=== PATIENT | female | born 1930 | race Caucasian/White ===

== ENCOUNTER → 2016-11-29 | Outpatient (CLI) | payer MEDICARE ==
[~2016-11-29] MED LIST: /AMIO20TA OR; /WARF2TA OR; ASPI81TA83 OR; CETI10TA OR; COLA100C2 OR; DIGO0.126 OR; KLOR10TA OR; LASI40TA OR; NEUR100C OR; NITR0.4S SL; PERC5TAB8 OR; POTA20TA2 OR; PRIL20CA OR; SENN8.6T14 OR; SENO8.6T5 OR; ZEST2.5T OR; levetiracetam OR; senna OR
--- NOTE | 2016-11-29 16:13 | REP ---
CERVICAL SPINE, SEVEN VIEWS: HISTORY: Spondylosis. COMPARISON: 04/11/2013 The cervical spine is visualized from C1 to C7 in the lateral radiographs. There is no acute fracture or subluxation. The C4-5 through C6-7 intervertebral discs are decreased in height consistent with disc degeneration. Anterior osteophytes are present on C4 through 6. There is narrowing of the C4-6 neural foramina secondary to uncinate process hypertrophy. IMPRESSION: Degenerative change as described above. Signed by Sohail Alejandro MD 11/29/2016 04:15 P
--- NOTE | 2016-11-29 16:15 | REP ---
LUMBAR SPINE, SEVEN VIEWS: HISTORY: Spondylosis. COMPARISON: 03/02/2007. There is no acute fracture. The intervertebral discs are decreased in height. Vacuum phenomenon is present at the L4-5 level. These findings are consistent with disc degeneration. Anterior osteophytes are present throughout the lumbar spine. There is narrowing of the L4-5 and L5-S1 facets with associated sclerosis. There are 2 mm of grade 1 spondylolisthesis of L4-5. This is unchanged with flexion and extension. IMPRESSION: Degenerative change as described above. Signed by Sohail Alejandro MD 11/29/2016 04:40 P
== END ==
LOC: M LAB 14:27
PROVIDERS: ATTEND Neurological Surgery
DX: M47.892 Other spondylosis, cervical region (principal); M47.896 Other spondylosis, lumbar region

== ENCOUNTER → 2016-12-29 | Outpatient (CLI) | payer MEDICARE ==
--- NOTE | 2016-12-29 16:41 | REP ---
MRI CERVICAL SPINE: A disc bulge is present at the C3-4 level. There is minimal effacement of the thecal sac without spinal cord compression. The C3 neural foramina are patent. A disc bulge with associated osteophyte formation is present at the C4-5 level. There is minimal effacement of the thecal sac without spinal cord compression. Bilateral uncinate process hypertrophy is present. This produces minimal and mild narrowing of the right and left C4 neural foramina respectively. A disc bulge with associated osteophyte formation is present at the C5-6 level. There is moderate effacement of the thecal sac without spinal cord compression. Bilateral uncinate process hypertrophy is present. This produces mild and moderate narrowing of the right and left C5 neural foramina respectively. A disc bulge is present at the C6-7 level. There is mild effacement of the thecal sac without spinal cord compression. Bilateral uncinate process hypertrophy is present. This produces mild narrowing of the C6 neural foramina. There is no other disc bulge or herniation. The remaining neural foramina are patent. The spinal cord is normal in signal intensity. There is no intradural extramedullary lesion. The C4-5 through C6-7 intervertebral discs are decreased in height consistent with disc degeneration. Normal signal intensity is present in the cervical vertebral bodies. IMPRESSION: There is cervical spondylosis at the C3-4 through C6-7 levels without spinal cord compression. Signed by Sohail Alejandro MD 12/29/2016 04:45 P
--- NOTE | 2016-12-29 16:45 | REP ---
MRI THORACIC SPINE WITHOUT CONTRAST: HISTORY: Spondylosis. A small central disc protrusion is present at the T3-4 level. There is minimal effacement of the thecal sac without spinal cord compression. The T3 neural foramina are patent. A disc bulge is present at the T12-L1 level. There is minimal effacement of the thecal sac without spinal cord compression. The T12 neural foramina are patent. There is no other disc bulge or herniation. The remaining neural foramina are patent. The spinal cord is normal in signal intensity. There is no intradural extramedullary lesion. Normal signal intensity is present in the thoracic vertebral bodies. Anterior osteophytes are present throughout the thoracic spine. There is aneurysmal dilatation of the thoracic and visualized abdominal aorta. IMPRESSION: 1. Small disc protrusion at the T3-4 level without spinal cord compression. 2. Disc bulge at the T12-L1 level without spinal cord compression. 3. There is aneurysmal dilatation of the thoracic and visualized abdominal aorta. Ultrasound of the abdominal aorta may be helpful for further evaluation. Signed by Sohail Alejandro MD 12/29/2016 04:47 P
== END ==
LOC: M RAD 12:57
PROVIDERS: ATTEND Neurological Surgery
DX: M47.892 Other spondylosis, cervical region (principal); M43.04 Spondylolysis, thoracic region; M51.24 Other intervertebral disc displacement, thoracic region

== ENCOUNTER → 2016-12-30 | Outpatient (CLI) | payer MEDICARE ==
--- NOTE | 2016-12-30 10:26 | REP ---
MRI LUMBAR SPINE WITHOUT CONTRAST: HISTORY: Back pain. Decreased signal intensity on T2-weighted images is present in the T12-L1 through L5-S1 intervertebral discs. The discs are decreased in height. These findings are consistent with disc degeneration. A diffuse disc bulge and small central disc protrusion are present at the L1-2 level. There is minimal compression of the thecal sac. The L1 nerves exit the neural foramina without compression. A diffuse disc bulge is present at the L2-3 level. There is minimal compression of the thecal sac. The L2 nerves exit the neural foramina without compression. A diffuse disc bulge is present at the L3-4 level. There is minimal compression of the thecal sac. The L3 nerves exit the neural foramina without compression. A diffuse disc bulge and small right paracentral and intraforaminal disc protrusion are present at the L4-5 level. There is minimal compression of the thecal sac. There is hypertrophy of the posterior articulating facets. The L4 nerves exit the neural foramina without compression. A diffuse disc bulge and small left paracentral disc protrusion are present at the L5-S1 level. There is minimal compression of the thecal sac. There is hypertrophy of the posterior articulating facets. The L5 nerves exit the neural foramina without compression. The right L5 and S1 nerves are conjoined. The conus medullaris is normal in appearance terminating at the level of the L1-2 intervertebral disc. A hemangioma is present in the L2 vertebral body. Increased signal intensity on T2-weighted images is present in the endplates of the L3-S1 vertebral bodies. This represents degenerative change. A 3.9 cm cyst is present in the right kidney. IMPRESSION: 1. Diffuse disc bulge and small central disc protrusion at the L1-2 level with minimal thecal sac compression. 2. Diffuse disc bulges at the L2-3 and L3-4 levels with minimal thecal sac compression. 3. Diffuse disc bulge and small right paracentral and intraforaminal disc protrusion at the L4-5 level with minimal thecal sac compression. 4. Diffuse disc bulge and small left paracentral disc protrusion at the L5-S1 level with minimal thecal sac compression. 5. 3.9 cm right renal cyst. Ultrasound may be helpful for further evaluation. Signed by Sohail Alejandro MD 12/30/2016 10:38 A
== END ==
LOC: M RAD 09:19
PROVIDERS: ATTEND Neurological Surgery
DX: M51.26 Other intervertebral disc displacement, lumbar region (principal); M51.27 Other intervertebral disc displacement, lumbosacral region; N28.1 Cyst of kidney, acquired; M47.896 Other spondylosis, lumbar region

== ENCOUNTER → 2017-02-22 | Outpatient (CLI) | payer MEDICARE ==
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
== END ==
LOC: M PAIN 15:20
PROVIDERS: ATTEND Nurse Practitioner Family
DX: G89.29 Other chronic pain (principal); M47.816 Spondylosis without myelopathy or radiculopathy, lumbar region; M12.88 Other specific arthropathies, not elsewhere classified, other specified site; I51.9 Heart disease, unspecified; Z88.8 Allergy status to other drugs, medicaments and biological substances; I49.9 Cardiac arrhythmia, unspecified; E03.9 Hypothyroidism, unspecified; Z79.82 Long term (current) use of aspirin; Z79.899 Other long term (current) drug therapy

== ENCOUNTER 2018-10-03 10:49 | Emergency (ER) | payer MEDICARE | END 2018-10-03 12:35 | disposition home or self-care (01) | LOC: M ED 10:49 | DX: S70.01XA Contusion of right hip, initial encounter (principal); S80.11XA Contusion of right lower leg, initial encounter; W19.XXXA Unspecified fall, initial encounter; Y92.89 Other specified places as the place of occurrence of the external cause; M79.89 Other specified soft tissue disorders; I25.2 Old myocardial infarction; M54.9 Dorsalgia, unspecified; Z87.442 Personal history of urinary calculi; Z87.891 Personal history of nicotine dependence; Z79.899 Other long term (current) drug therapy; Z79.82 Long term (current) use of aspirin; M79.661 Pain in right lower leg; I48.91 Unspecified atrial fibrillation | CPT/HCPCS: 93971 ==

== ENCOUNTER 2018-10-08 12:21 | Emergency (ER) | payer MEDICARE ==
[2018-10-08] MEDS: MORPHINE 2 MG/ML 1ML SYRINGE (J2270) IM (12:50)
== END 2018-10-08 13:51 | disposition home or self-care (01) ==
LOC: M ED 12:21
DX: S40.011A Contusion of right shoulder, initial encounter (principal); W01.0XXA Fall on same level from slipping, tripping and stumbling without subsequent striking against object, initial encounter; Y92.098 Other place in other non-institutional residence as the place of occurrence of the external cause; I51.9 Heart disease, unspecified; I25.2 Old myocardial infarction; Z95.5 Presence of coronary angioplasty implant and graft; Z79.899 Other long term (current) drug therapy; Z79.82 Long term (current) use of aspirin
CPT/HCPCS: J2270

== ENCOUNTER → 2018-11-17 | Outpatient (CLI) | payer MEDICARE ==
[~2018-11-17] MED LIST changes: +BEET ROOT; +BIOT1CAP2 PO; +GLUC1CAP10 PO; +LEVO-89 PO; +NORCOTAB PO; +OCUVTAB PO; +[UNRECOGNIZED DRUG - OTHER]
--- NOTE | 2018-11-17 11:52 | REP ---
CT right shoulder without contrast: History: Contusion of the right shoulder. Comparison radiographs October 18, 2018. CT findings: Axial images demonstrate nondisplaced fractures of the anterior tip of the coracoid process as well as a bony Bankart chip fracture of the anterior edge of the glenoid. There is no definite Hill-Sachs impaction deformity. No humeral fracture is appreciated. The acromion process appears intact. Distal clavicle shows no evidence of fracture. No rib fracture is appreciated. Median sternotomy wires are noted. A thoracic aortic aneurysm with stent graft is partially visualized on axial images. The anterior bony Bankart glenoid fracture is interarticular and there is a 1-2 mm impaction step-off at the fracture fragment. There is 5 mm of diastases at the coracoid process fracture. Mild AC joint osteoarthritis is seen. The scan is otherwise unremarkable. Impression: Recent fractures of the coracoid process and anterior bony labrum (Bankart fracture). This implies anterior glenohumeral dislocation injury although the glenohumeral joint is normally aligned at the time of today's scanning. Electronically Signed by Hitesh Arreaga MD 11/17/2018 12:11 P
== END ==
LOC: M RAD 09:19
PROVIDERS: ATTEND Orthopaedic Surgery Sports Medicine
DX: S40.011A Contusion of right shoulder, initial encounter (principal); X58.XXXA Exposure to other specified factors, initial encounter; Y92.89 Other specified places as the place of occurrence of the external cause; Y99.9 Unspecified external cause status; Y93.9 Activity, unspecified

== ENCOUNTER → 2018-12-27 | Outpatient (CLI) | payer MEDICARE ==
[2018-12-27 10:39] LABS: BASO % 0.5 % (0.0-1.0); EOS # 0.2 10^3/uL (0.0-0.50); EOS % 2.4 % (0.0-3.0); HEMATOCRIT 35.5 % (36.0-47.0); HEMOGLOBIN 11.4 g/dl (12.0-15.5); LYMPH # 1.6 10^3/uL (1.5-4.5); LYMPH % 20.3 % (24.0-44.0); MEAN CORPUSCULAR HGB CONC 32.1 g/dl (32.0-36.5); MEAN CORPUSCULAR VOLUME 93.4 fl (80.0-96.0); MONO # 0.4 10^3/uL (0.0-0.8); MONO % 4.6 % (0.0-5.0); NEUTROPHILS # 5.7 10^3/uL (1.8-7.7); NEUTROPHILS % 71.6 % (36.0-66.0); PLATELET COUNT, AUTOMATED 155 10^3/uL (150-450); WHITE BLOOD COUNT 7.9 10^3/uL (4.0-10.0)
[2018-12-27 10:52] LABS: INR 1.05; PROTHROMBIN TIME 13.8 SECONDS (12.1-14.4)
[2018-12-27 11:37] LABS: ALBUMIN 3.7 GM/DL (3.2-5.2); ALT/SGPT 16 U/L (12-78); BILIRUBIN,TOTAL 0.5 MG/DL (0.2-1.0); BLOOD UREA NITROGEN 14 MG/DL (7-18); CALCIUM LEVEL 8.5 MG/DL (8.8-10.2); CARBON DIOXIDE LEVEL 26 MEQ/L (21-32); CHLORIDE LEVEL 109 MEQ/L (98-107); CHOLESTEROL LEVEL 167 MG/DL (<200); CHOLESTEROL RISK RATIO 2.982 (<5); CREATININE FOR GFR 0.56 MG/DL (0.55-1.30); FREE T4 1.44 NG/DL (0.76-1.46); GLOMERULAR FILTRATION RATE > 60.0 (>32); GLUCOSE, FASTING 95 MG/DL (70-100); HDL CHOLESTEROL 56 MG/DL (>40); LDL CHOLESTEROL 103 MG/DL (<100); NON-HDL-C 111 MG/DL; PHOSPHORUS LEVEL 3.3 MG/DL (2.5-4.9); POTASSIUM SERUM 4.1 MEQ/L (3.5-5.1); RHEUMATOID FACTOR QUANT < 10.0 IU/ML (<15.0); SODIUM LEVEL 144 MEQ/L (136-145); THYROID STIMULATING HORMONE 0.645 uIU/ML (0.358-3.740); TOTAL PROTEIN 6.2 GM/DL (6.4-8.2); TRIGLYCERIDES LEVEL 42 MG/DL (<150)
[2018-12-28 15:05] LABS: ANTINUCLEAR ANTIBODIES DIRECT Negative (Negative)
== END ==
LOC: M LAB 09:52
PROVIDERS: ATTEND Physician Assistant Medical
DX: E78.2 Mixed hyperlipidemia (principal); R53.83 Other fatigue; I10 Essential (primary) hypertension; E03.9 Hypothyroidism, unspecified

== ENCOUNTER 2019-01-23 16:34 | Inpatient (IN) | payer MEDICARE ==
[~2019-01-23] VITALS: Ht 154.9 cm; Wt 73.5 kg
[2019-01-23] MEDS ORDERED: AUGM875T28 PO (16:45)
[2019-01-23] MEDS ORDERED: FLUTISP NARES (16:45)
[2019-01-23] MEDS ORDERED: GABA-843 PO (16:45)
[2019-01-23] MEDS ORDERED: LEVOTAB10 PO (16:45)
[2019-01-23] MEDS ORDERED: PRED20TA PO (16:45)
[2019-01-23] MEDS ORDERED: IPRATROPIUM 0.5MG/ALBUTEROL 2.5MG INH SOL UD 3ML (DUONEB)(J7620) NEB ONE (17:15)
[2019-01-23] MEDS ORDERED: FUROSEMIDE 40 MG/4 ML VIAL (J1940) IV ONE (17:15)
[2019-01-23 17:45] LABS: BASO % 0.1 % (0.0-1.0); HEMATOCRIT 38.2 % (36.0-47.0); HEMOGLOBIN 12.2 g/dl (12.0-15.5); LYMPH # 1.5 10^3/uL (1.5-4.5); LYMPH % 21.9 % (24.0-44.0); MEAN CORPUSCULAR HEMOGLOBIN 28.9 pg (27.0-33.0); MEAN CORPUSCULAR HGB CONC 31.9 g/dl (32.0-36.5); MEAN CORPUSCULAR VOLUME 90.5 fl (80.0-96.0); MONO # 0.5 10^3/uL (0.0-0.8); MONO % 6.5 % (0.0-5.0); NEUTROPHILS # 4.9 10^3/uL (1.8-7.7); NEUTROPHILS % 70.4 % (36.0-66.0); PLATELET COUNT, AUTOMATED 174 10^3/uL (150-450); RED BLOOD COUNT 4.22 10^6/uL (4.00-5.40)
[2019-01-23 17:59] LABS: INR 1.14; PROTHROMBIN TIME 14.8 SECONDS (12.1-14.4)
[2019-01-23 18:18] LABS: BLOOD UREA NITROGEN 18 MG/DL (7-18); CALCIUM LEVEL 8.3 MG/DL (8.8-10.2); CARBON DIOXIDE LEVEL 31 MEQ/L (21-32); CHLORIDE LEVEL 103 MEQ/L (98-107); CPK CREATINE PHOSPHOKINASE 26 U/L (26-192); CREATININE FOR GFR 0.58 MG/DL (0.55-1.30); GLOMERULAR FILTRATION RATE > 60.0 (>32); GLUCOSE, FASTING 105 MG/DL (70-100); INFLUENZA A AMPLIFICATION POSITIVE (NEGATIVE); INFLUENZA B AMPLIFICATION NEGATIVE (NEGATIVE); MB/CK RELATIVE INDEX 4.23 (< OR =4); NT-PRO BNP 2434 PG/ML (<450); POTASSIUM SERUM 3.6 MEQ/L (3.5-5.1); SODIUM LEVEL 142 MEQ/L (136-145); TROPONIN I < 0.02 NG/ML (< 0.10)
--- NOTE | 2019-01-23 18:26 | REP ---
CHEST, TWO VIEWS: Two views of the chest are performed and compared to prior study of 11/03/2018. There is cardiomegaly noted as well as dilatation of the thoracic aorta. Aortic stent is again noted. Multiple sternal wires are present. There is a prosthetic heart valve. There are chronic interstitial densities in the lungs which are stable and chronic with no change since prior study. No acute infiltrate or pulmonary edema is seen. There is chronic blunting of the right costophrenic angle. There are mild degenerative changes of the spine. IMPRESSION: Cardiomegaly and chronic changes appear stable. No evidence of superimposed acute infiltrate. Electronically Signed by George Santana MD 01/24/2019 01:34 P
[2019-01-23] MEDS ORDERED: POTA10CA32 PO (19:41)
[2019-01-23] MEDS ORDERED: VITAD1000T PO (19:41)
[2019-01-23] MEDS ORDERED: FURO40TA2 PO (19:41)
[2019-01-23] MEDS ORDERED: ASPI1TAB PO (19:41)
[2019-01-23] MEDS ORDERED: VITATAB11 PO (19:41)
[2019-01-23] MEDS ORDERED: GINK40CA3 PO (19:41)
[2019-01-23] MEDS ORDERED: FUROSEMIDE 40 MG TAB PO SCH (21:45)
[2019-01-23] MEDS ORDERED: ACETAMINOPHEN TAB 650MG DOSE (2X325MG) PO PRN (22:00)
[2019-01-23] MEDS ORDERED: IPRATROPIUM 0.5MG/ALBUTEROL 2.5MG INH SOL UD 3ML (DUONEB)(J7620) NEB PRN (22:00)
[2019-01-23] MEDS: GABAPENTIN 300 MG CAP PO SCH (22:53)
[2019-01-23] MEDS: predniSONE 20 MG TAB PO SCH (22:53)
[2019-01-23] MEDS: OSELTAMIVIR PHOSPHATE 75 MG CAP (TAMIFLU) PO SCH (22:53)
[2019-01-24] VITALS (8 sets, daily range): BP systolic 126–160; BP diastolic 71–90
[2019-01-24] MEDS: LEVOTHYROXINE 100MCG TABLET (0.1MG) PO SCH (05:52)
[2019-01-24 06:02] LABS: HEMATOCRIT 36.2 % (36.0-47.0); HEMOGLOBIN 11.5 g/dl (12.0-15.5); MEAN CORPUSCULAR HGB CONC 31.8 g/dl (32.0-36.5); MEAN CORPUSCULAR VOLUME 91.2 fl (80.0-96.0); PLATELET COUNT, AUTOMATED 147 10^3/uL (150-450); RED BLOOD COUNT 3.97 10^6/uL (4.00-5.40); WHITE BLOOD COUNT 6.2 10^3/uL (4.0-10.0)
[2019-01-24 06:31] LABS: BLOOD UREA NITROGEN 17 MG/DL (7-18); CALCIUM LEVEL 8.3 MG/DL (8.8-10.2); CARBON DIOXIDE LEVEL 35 MEQ/L (21-32); CHLORIDE LEVEL 102 MEQ/L (98-107); CREATININE FOR GFR 0.54 MG/DL (0.55-1.30); GLOMERULAR FILTRATION RATE > 60.0 (>32); GLUCOSE, FASTING 121 MG/DL (70-100); POTASSIUM SERUM 3.5 MEQ/L (3.5-5.1); SODIUM LEVEL 143 MEQ/L (136-145)
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
[2019-01-24] MEDS: IPRATROPIUM 0.5MG/ALBUTEROL 2.5MG INH SOL UD 3ML (DUONEB)(J7620) NEB SCH ×3 (07:48→21:05)
[2019-01-24] MEDS: predniSONE 20 MG TAB PO SCH ×2 (08:17→20:18)
[2019-01-24] MEDS: OSELTAMIVIR PHOSPHATE 75 MG CAP (TAMIFLU) PO SCH ×2 (08:18→20:18)
[2019-01-24] MEDS: ASPIRIN 81 MG ENTERIC TAB PO SCH (08:18)
[2019-01-24] MEDS: GABAPENTIN 300 MG CAP PO SCH ×2 (08:18→20:18)
[2019-01-24] MEDS: ENOXAPARIN 30 MG/0.3 ML SYR (J1650) SC SCH (08:18)
[2019-01-24] MEDS: FUROSEMIDE 40 MG/4 ML VIAL (J1940) IV SCH (08:18)
[2019-01-24 08:35] LABS: CK-MB VALUE MASS < 1.0 NG/ML (<3.6); CPK CREATINE PHOSPHOKINASE 15 U/L (26-192); MAGNESIUM LEVEL 2.3 MG/DL (1.8-2.4); MB/CK RELATIVE INDEX 6.67 (< OR =4); TROPONIN I 0.02 NG/ML (< 0.10)
[2019-01-24] MEDS ORDERED: FUROSEMIDE 40 MG TAB PO SCH (09:00)
[2019-01-24] MEDS: VITAMIN B COMPLEX/VIT C CAP PO SCH (09:00)
[2019-01-24] MEDS: FLUTICASONE PROP 0.05% NASAL SPRAY 16 GM (FLONASE) NARES SCH (09:00)
--- NOTE | 2019-01-24 13:48 | ECGEPIP ---
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
[2019-01-24] MEDS: SLF 3 ML SYR IV SCH ×2 (14:00→21:32)
[2019-01-24] MEDS ORDERED: SLF 3 ML SYR IV PRN (14:00)
[2019-01-24 14:05] LABS: CK-MB VALUE MASS < 1.0 NG/ML (<3.6); CPK CREATINE PHOSPHOKINASE 15 U/L (26-192); MB/CK RELATIVE INDEX 6.67 (< OR =4); TROPONIN I < 0.02 NG/ML (< 0.10)
--- NOTE | 2019-01-24 20:23 | ECHO ---
DATE OF PROCEDURE: 01/24/2019 REFERRING PHYSICIAN: Antonette Rodriguez MD PATIENT LOCATION: Room 3217 REASON FOR ECHOCARDIOGRAM: Shortness of breath. 2D MEASUREMENTS: IVS: 1.3 cm LV: 4.9 cm LVPW: 1.3 cm LA: 4.7 cm Aorta: 3.0 cm DOPPLER MEASUREMENTS: Peak velocity across the aortic valve: 2.9 m/s Peak velocity across the LVOT: 0.72 m/s Peak gradient across the aortic valve: 33 mmHg Mean gradient across the aortic valve: 21 mmHg Mitral E: 1.1 Maximum tricuspid valve velocity: 3.0 m/s 2D COMMENTS: 1. Mildly increased left ventricular wall thickness with normal left ventricular size and normal global left ventricular systolic function. The estimated left ventricular systolic ejection fraction is 55 to 60%. 2. Mildly enlarged left atrium. Moderately enlarged right atrium. Normal right ventricle. 3. The atrial septum appeared to be normal without evidence of defect or shunt. 4. Normal aortic root. 5. Trace pericardial effusion noted, no evidence of cardiac tamponade. 6. Bioprosthetic valve noted in aortic valve position and leaflet excursion is mildly restricted. The valve appeared to be well seated. Mildly calcified mitral annulus with normal anterior mitral valve leaflet motion. Normal tricuspid valve and pulmonic valve. The proximal pulmonary artery branches were not well visualized. 7. The inferior vena cava was not well visualized. DOPPLER: It detects moderate mitral regurgitation, moderate tricuspid regurgitation, and mild to moderate pulmonic regurgitation. The calculated pulmonary artery systolic pressure varied between 40 to 50 mmHg. Assessment of the left ventricular diastolic function was limited, patient seems to be in atrial fibrillation during the test. IMPRESSION: 1. Normal global left ventricular systolic function. Assessment of the left ventricular diastolic function was limited due to underlying arythmias. 2. Bioprosthetic aortic valve with mild stenosis, but no regurgitation. 3. Mitral annulus calcification with moderate mitral regurgitation and mildly enlarged left atrium. 4. Moderate tricuspid regurgitation with moderate pulmonary hypertension and moderately enlarged right atrium. 5. Mild to moderate pulmonic regurgitation. 6. Subacute bacterial endocarditis (SBE) prophylaxis is recommended.
[2019-01-25] MEDS: IPRATROPIUM 0.5MG/ALBUTEROL 2.5MG INH SOL UD 3ML (DUONEB)(J7620) NEB SCH ×3 (02:00→11:28)
[2019-01-25 04:00] VITALS: BP 174/96
[2019-01-25 05:51] LABS: HEMATOCRIT 36.8 % (36.0-47.0); HEMOGLOBIN 11.7 g/dl (12.0-15.5); MEAN CORPUSCULAR HEMOGLOBIN 28.9 pg (27.0-33.0); MEAN CORPUSCULAR HGB CONC 31.8 g/dl (32.0-36.5); MEAN CORPUSCULAR VOLUME 90.9 fl (80.0-96.0); PLATELET COUNT, AUTOMATED 165 10^3/uL (150-450); RED BLOOD COUNT 4.05 10^6/uL (4.00-5.40); WHITE BLOOD COUNT 8.2 10^3/uL (4.0-10.0)
[2019-01-25] MEDS: SLF 3 ML SYR IV SCH (06:00)
[2019-01-25 06:08] LABS: BLOOD UREA NITROGEN 19 MG/DL (7-18); CALCIUM LEVEL 8.6 MG/DL (8.8-10.2); CARBON DIOXIDE LEVEL 33 MEQ/L (21-32); CHLORIDE LEVEL 101 MEQ/L (98-107); CREATININE FOR GFR 0.59 MG/DL (0.55-1.30); GLOMERULAR FILTRATION RATE > 60.0 (>32); GLUCOSE, FASTING 137 MG/DL (70-100); MAGNESIUM LEVEL 2.2 MG/DL (1.8-2.4); POTASSIUM SERUM 3.6 MEQ/L (3.5-5.1); SODIUM LEVEL 142 MEQ/L (136-145)
[2019-01-25] MEDS: LEVOTHYROXINE 100MCG TABLET (0.1MG) PO SCH (06:25)
--- NOTE | 2019-01-25 06:49 | IPN ---
DATE: 01/24/2019 The patient seen and examined. No acute events overnight. Admitted overnight. Denies any chest pain, pressure or discomfort. Reported respirations much improved. VITAL SIGNS: Temperature 98.2, pulse 87, respirations 19, blood pressure 160/72, pulse oximetry 94% on room air. LABORATORY: WBC 6.2, hemoglobin/hematocrit (H/H) 11.5/36.2, platelets 147. Chemistries: Sodium 143, potassium 3.5, chloride 102, bicarbonate 35, BUN 17, creatinine 0.54. PHYSICAL EXAMINATION: General: Patient alert, comfortable, in no acute distress. HEENT: Normocephalic, atraumatic. Pulmonary: Decreased breath sounds bilateral. Mild expiratory wheeze. Cardiac: Irregularly irregular. S1 and S2, tachycardia. Abdomen: Soft. Nontender. Positive bowel sounds. Extremities: 1+ pitting edema bilateral. ASSESSMENT AND PLAN: This is an 88-year-old female patient with underlying medical history of paroxysmal atrial fibrillation, history of aortic valve replacement in December 2010, history of idiopathic thrombocytopenic purpura on prednisone, hypertension, congestive heart failure on Lasix for which the patient is noncompliant. The patient presented with cough, shortness of breath, and was diagnosed with influenza. PROBLEMS: 1. Influenza A. Chest x-ray does not show any infiltrate. Oxygen supplementation as needed. Tamiflu has been ordered. Nebulizer treatment as needed. 2. Acute congestive heart failure exacerbation with valvular heart disease. Echocardiogram appreciated. Likely diastolic dysfunction. Serial cardiac enzymes appreciated. Lasix has been given. Strict ins and outs. Daily weight. 3. Paroxysmal atrial fibrillation. Not on anticoagulation. The patient also not on beta carlos. Needs outpatient workup. 4. History of idiopathic thrombocytopenic purpura (ITP). Continue steroids. 5. Hypothyroidism. Continue Synthroid. 6. Neuropathy. Continue current medication. 7. Deep vein thrombosis (DVT) prophylaxis. Lovenox subcutaneous. DISPOSITION: Pending clinical improvement. Physical therapy. Likely discharge in the next 24 to 48 hours.
[2019-01-25 08:00] VITALS: BP 140/70
[2019-01-25] MEDS: ENOXAPARIN 30 MG/0.3 ML SYR (J1650) SC SCH (08:57)
[2019-01-25] MEDS: predniSONE 20 MG TAB PO SCH (08:58)
[2019-01-25] MEDS: VITAMIN B COMPLEX/VIT C CAP PO SCH (08:58)
[2019-01-25] MEDS: OSELTAMIVIR PHOSPHATE 75 MG CAP (TAMIFLU) PO SCH (08:58)
[2019-01-25] MEDS: ASPIRIN 81 MG ENTERIC TAB PO SCH (08:58)
[2019-01-25] MEDS: GABAPENTIN 300 MG CAP PO SCH (08:58)
[2019-01-25] MEDS: FUROSEMIDE 40 MG/4 ML VIAL (J1940) IV SCH (08:58)
[2019-01-25] MEDS: FLUTICASONE PROP 0.05% NASAL SPRAY 16 GM (FLONASE) NARES SCH (08:58)
[2019-01-25] MEDS ORDERED: PRED10TA2 PO (09:11)
[2019-01-25] MEDS ORDERED: OSEL75CA2 PO (09:11)
[2019-01-25] MEDS ORDERED: VENTAER INH (09:11)
[2019-01-25] MEDS ORDERED: IPRA0.00 NEB (09:12)
[2019-01-25] MEDS ORDERED: ALBUTEROL 90 MCG/ACT 8GM HFA INHALER INH ONE (10:00)
== END 2019-01-25 12:41 | disposition home or self-care (01) | DRG 193 ==
LOC: M ED 16:34 → M ED INP 21:55 → M PCU 01-24 13:35
PROVIDERS: ADMIT Internal Medicine; ATTEND Internal Medicine Nephrology
DX: J10.1 Influenza due to other identified influenza virus with other respiratory manifestations (principal); I50.33 Acute on chronic diastolic (congestive) heart failure; D69.3 Immune thrombocytopenic purpura; I48.0 Paroxysmal atrial fibrillation; E03.9 Hypothyroidism, unspecified; I11.0 Hypertensive heart disease with heart failure; G62.9 Polyneuropathy, unspecified; Z95.3 Presence of xenogenic heart valve; Z91.14 Patient's other noncompliance with medication regimen; Z79.82 Long term (current) use of aspirin; Z79.52 Long term (current) use of systemic steroids; Z79.899 Other long term (current) drug therapy

== ENCOUNTER 2019-01-31 19:01 | Emergency (ER) | payer MEDICARE, OTHER ==
[~2019-01-31] VITALS: Ht 154.9 cm; Wt 76.3 kg
[~2019-01-31 19:01] MED LIST changes: -/AMIO20TA OR; -/WARF2TA OR; +AMIO1TAB OR; +ASPI81TA26 PO; +AUGM875T28 PO; +COUM1TAB16 OR; +FLUTISP NARES; +FURO40TA2 PO; +GABA-843 PO; +GINK40CA3 PO; +HYDR-3715 PO; +IPRA0.00 NEB; +LEVOTAB10 PO; -NORCOTAB PO; +OSEL75CA2 PO; +POTA10CA32 PO; +PRED10TA2 PO; +PRED20TA PO; +VENTAER INH; +VITAD1000T PO; +VITATAB11 PO
[2019-01-31 22:02] LABS: BLOOD UREA NITROGEN 33 MG/DL (7-18); CALCIUM LEVEL 8.8 MG/DL (8.8-10.2); CARBON DIOXIDE LEVEL 33 MEQ/L (21-32); CHLORIDE LEVEL 109 MEQ/L (98-107); CREATININE FOR GFR 0.55 MG/DL (0.55-1.30); GLOMERULAR FILTRATION RATE > 60.0 (>32); GLUCOSE, FASTING 98 MG/DL (70-100); POTASSIUM SERUM 4.4 MEQ/L (3.5-5.1); SODIUM LEVEL 145 MEQ/L (136-145)
[2019-01-31] MEDS ORDERED: ISOVUE-370 76% 125ML VIAL (Q9967 PER ML) As Ordered ONE (22:06)
[2019-01-31 23:33] VITALS: BP 150/70
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
--- NOTE | 2019-02-02 10:34 | ED PDOC ---
Post-Departure Follow-Up gisele louis, dr kimbrough, dr arevalo faxed formal report of cta chest for fu Lmaine Benton MD Feb 02, 2019 10:34
== END 2019-02-01 00:31 | disposition home or self-care (01) ==
LOC: M ED 19:01
DX: Z04.1 Encounter for examination and observation following transport accident (principal); V49.49XA Driver injured in collision with other motor vehicles in traffic accident, initial encounter; Y92.481 Parking lot as the place of occurrence of the external cause; I71.2 Thoracic aortic aneurysm, without rupture; I11.0 Hypertensive heart disease with heart failure; I50.9 Heart failure, unspecified; J45.909 Unspecified asthma, uncomplicated; E03.9 Hypothyroidism, unspecified; K21.9 Gastro-esophageal reflux disease without esophagitis; Z79.82 Long term (current) use of aspirin
CPT/HCPCS: 36415; 71275; 80048; 99284; Q9967

== ENCOUNTER → 2019-08-09 | Outpatient (CLI) | payer MEDICARE ==
[~2019-08-09] MED LIST changes: +CHOL100029 PO; -VITAD1000T PO
--- NOTE | 2019-08-09 16:11 | REP ---
Chest x-ray: Two views. History: Chronic dyspnea. Comparison chest x-ray: January 23, 2019. Findings: The patient is status post thoracic aortic stent graft placement in the descending aorta, unchanged. The patient is also status post aortic valve replacement. There is moderate to marked cardiac enlargement again noted unchanged. Cardiothoracic ratio measures 62.0%. Pulmonary vasculature does not appear to be increased. There is no evidence of pleural effusion. No infiltrate is seen. Median sternotomy wires are noted. Impression: Moderate to marked cardiomegaly. Status post aortic valve replacement and thoracic aortic stent graft placement. No acute infiltrate is seen. Electronically Signed by Hitesh Arreaga MD 08/09/2019 04:33 P
== END ==
LOC: M RAD 12:33
PROVIDERS: ATTEND Physician Assistant Medical
DX: R06.00 Dyspnea, unspecified (principal); I51.7 Cardiomegaly; Z95.2 Presence of prosthetic heart valve; Z95.828 Presence of other vascular implants and grafts

== ENCOUNTER → 2019-11-29 | Outpatient (CLI) | payer MEDICARE ==
--- NOTE | 2019-11-29 15:33 | REP ---
PA and lateral chest: Comparison is 08/09/2019. There is an infiltrate inferiorly in the right lung as an interval change. The left lung is clear. There is cardiomegaly, unchanged. There is an endovascular stent in the proximal portion of the descending thoracic aorta, unchanged. There is a prosthetic aortic valve, unchanged. There are sternotomy wires, unchanged. Impression: There is an acute infiltrate inferiorly in the right lung as an interval change. Chronic cardiomegaly. Chronic postsurgical changes as described. Electronically Signed by George De La Paz MD 11/29/2019 03:25 P
== END ==
LOC: M WUC 14:28
PROVIDERS: ATTEND Physician Assistant
DX: R91.8 Other nonspecific abnormal finding of lung field (principal); I51.7 Cardiomegaly; Z95.828 Presence of other vascular implants and grafts

== ENCOUNTER → 2020-01-09 | Outpatient (CLI) | payer MEDICARE ==
--- NOTE | 2020-01-09 15:02 | REPVR ---
PROCEDURE INFORMATION: Exam: CT Chest Without Contrast Exam date and time: 01/09/2020 1:50 PM Age: 89 years old Clinical indication: Dyspnea TECHNIQUE: Imaging protocol: Computed tomography of the chest without contrast. Coronal and sagittal reformats were created and reviewed. 3D rendering: MIP and/or 3D reconstructed images were created by the technologist. Radiation optimization: All CT scans at this facility use at least one of these dose optimization techniques: automated exposure control; mA and/or kV adjustment per patient size (includes targeted exams where dose is matched to clinical indication); or iterative reconstruction. COMPARISON: CT ANGIO CHEST 01/31/2019 10:14 PM CR - CHEST 2 VIEW 11/29/2019 2:38:05 PM CR - Chest, 2 view PA, Lat 08/09/2019 12:46:39 PM FINDINGS: Limitations: Noncontrast technique reduces sensitivity of CT for detecting abnormalities in the organs and vessels. Tubes, catheters and devices: Retained epicardial pacing leads redemonstrated. Thyroid: Unremarkable as visualized. Lungs: The trachea is unremarkable. Unchanged left apical curvilinear scarring. Unchanged minimal peripheral bronchiectasis of the left lower lobe and lingula with associated scarring. Mild scattered bilateral subpleural reticulation consistent with mild fibrosis is redemonstrated. Right lower lobe anterior basilar small consolidative opacity with additional high attenuation/calcific opacities is new compared to 01/31/2019 and 08/09/2019. The right lower lobe consolidative opacity measures approximately 19 x 17 mm (sagittal series 205, image 44). Pleural space: No pleural effusion. No pneumothorax. Heart: Heavy coronary arterial atherosclerotic calcification. Severe four-chamber cardiomegaly, most pronounced at the bilateral atria, does not appear significantly changed. No pericardial effusion. Mediastinum: No abnormal esophageal dilation. Pulmonary arteries: Unchanged diffuse bilateral central pulmonary arterial enlargement. The main pulmonary arterial trunk measures 4.1 cm in diameter. Aorta: Widespread atherosclerotic calcifications of the visualized abdomen. Unchanged size and configuration of the diffuse fusiform descending thoracic aortic aneurysm of the proximal and mid descending aorta measuring up to 5.1 cm in diameter and containing an aortic stent graft. Unchanged size and configuration of the fusiform aneurysm of the distal descending thoracic aorta measuring 5.4 x 4.6 cm in axial diameters (series 202, image 72); this distal descending aortic aneurysm contains a suspected dissection flap, unchanged. A portion of this distal descending aortic aneurysm is relatively high attenuation, also unchanged. Unchanged suspected ascending aortic graft. No ascending aortic aneurysm. Prosthetic aortic valve redemonstrated. Inferior vena cava: Unchanged dilation of the visualized inferior vena cava at the upper abdomen. Lymph nodes: No enlarged lymph nodes. Liver: Left hepatic 1.3 cm ovoid hypoattenuating lesion consistent with a cyst is redemonstrated. Kidneys and ureters: Right kidney homogeneous hypoattenuating 4.2 cm lesion consistent with a simple cyst is redemonstrated. Bones/joints: Multilevel degenerative spine disease. Median sternotomy closure devices present. Soft tissues: Unremarkable. IMPRESSION: 1. New small right lower lobe basilar consolidation, compared to 08/09/2019. An area of infectious pneumonia, aspiration and/or atelectasis could be considered. There are new small calcific densities associated with the consolidative opacity which could represent aspirated material. Follow-up chest CT is recommended to ensure resolution of the finding to exclude a persistent or growing pulmonary nodule. 2. Unchanged appearance of the descending thoracic aortic large aneurysms, descending thoracic aortic stent graft, and distal descending thoracic aortic suspected dissection as described. Evaluation is limited given the lack of intravenous contrast. 3. Stable severe cardiomegaly. 4. Atherosclerosis. Coronary artery disease. 5. Findings consistent with pulmonary hypertension. 6. Please see the body of the report for other findings as described. Electronically signed by: Onur Munroe On 01/09/2020 14:57:07 PM
== END ==
LOC: M RAD 13:32
PROVIDERS: ATTEND Nurse Practitioner Family
DX: R06.00 Dyspnea, unspecified (principal)

== ENCOUNTER → 2020-05-04 | Outpatient (CLI) | payer MEDICARE ==
--- NOTE | 2020-05-09 19:32 | SLEEPCENT ---
DATE OF PROCEDURE: 05/04/2020 ORDERED BY: RICHARD Payan Nocturnal polysomnography was performed for evaluation of sleep physiology in this patient with a history of nonrestorative sleep and excessive somnolence. At the patient's request, testing was performed in a reclining chair. 7 hours and 43 minutes of data were reviewed. There were 381.5 minutes of sleep identified. Sleep latency was normal at 13 minutes. Rapid eye movement (REM) sleep was delayed at 156 minutes. Sleep architecture showed fragmentation and poor progression. There was only one REM cycle noted. Overall sleep efficiency was 83.6%. The electrocardiogram showed an irregular supraventricular rhythm, average heart rate 68 beats per minute. EEG showed normal waveforms for awake and sleep. There were 96 respiratory events identified of 10 seconds in duration or greater for an apnea-hypopnea index of 15.1. The events were primarily obstructive, not exclusive to sleep stage nor body posture. Arousals from respiratory events occurred 2.8 times per hour and oxygen desaturations were seen in the 80s. There was some limb activity noted as well in the EMG leads, but limb movement arousals were few. IMPRESSION: Obstructive sleep apnea syndrome (G47.33). Apnea-hypopnea index 15.1. RECOMMENDATIONS: The patient should be encouraged to return to the sleep disorder center for pressure therapy. In the interim, alcohol and sedative avoidance should be practiced and caution exercised during the operation of motor vehicles.
== END ==
LOC: M SLEEP 20:00
PROVIDERS: ATTEND Nurse Practitioner Family
DX: G47.33 Obstructive sleep apnea (adult) (pediatric) (principal)

== ENCOUNTER → 2020-06-03 | Outpatient (CLI) | payer MEDICARE ==
--- NOTE | 2020-07-21 08:26 | SLEEPCENT ---
DATE: 06/03/2020 ORDERED BY: Dr. Sharron Zayas Nocturnal polysomnography was performed in an effort to titrate pressure therapy in this patient with obstructive sleep apnea syndrome, apnea-hypopnea index of 15. For testing, a ResMed F30 AirFit full-face mask, small size, was use. There was 4 cm of water pressure applied to the circuit, and the lights were extinguished. There was 7 hours and 34 minutes of data reviewed. There was 232 minutes of sleep identified. Sleep latency was prolonged at 20.5 minutes. REM latency was short at 29.5 minutes. Sleep architecture was fair. There was a prolonged period of wake, however, between 1:30 and 3:45, resulting in reduced sleep efficiency of 51.8%. The patient's electrocardiogram showed a sinus rhythm with small complexes. Average heart rate 60 beats per minute. EEG showed normal waveforms for wake and sleep. Multiple pressure titrations were performed. For a period late in the study, bilevel therapy was initiated. On retrospective review of the test, best sleep was seen on a CPAP pressure of +8. There was some limb activity appreciated. Limb movement arousal index was 5.7. IMPRESSIONS: Obstructive sleep apnea syndrome (G47.33). RECOMMENDATION: Nightly use of pressure therapy, 8 cm of water. /jennifer Baer edited: 09/03/2020 1108 tkf MTDD
== END ==
LOC: M SLEEP 20:00
PROVIDERS: ATTEND Nurse Practitioner Family
DX: G47.33 Obstructive sleep apnea (adult) (pediatric) (principal)

== ENCOUNTER 2020-12-31 09:35 | Inpatient (IN) | payer MEDICARE ==
[~2020-12-31] VITALS: Ht 154.9 cm; Wt 69.0 kg
[~2020-12-31 09:35] MED LIST changes: +GABA-282 PO; -GABA-843 PO
--- OUTSIDE RECORDS SUMMARY | 2020-12-31 09:45 | CCD ---
Continuity of Care Document (CCD) Created on: 11/29/2020 [place] Tiffanie External Reference #: [id number] Sex: Female Author Author Tiffanie BAER A Organization Unknown Address [address] [address] [place] [address] Phone [phone] Care Team Providers Care Electronic Parts Designer Name Role Phone Angie Wade M.D. AUTM Unavailable Beltran Baer AUTM [phone] [facility] Heme/Oncology - Hematology & Oncology AUTM [phone] Jaylen Mora MD AUTM [phone] [facility] Cardiology - Cardiovascular Disease AUTM [phone] Beltran Baer PCP Social History Type Date Description Comments Sex Unknown Encounters Type Date Location Provider Dx Diagnosis Office Visit 11/19/2020 9:30a [facility] ROBSON Caba I10 Essential (primary) hyperten delta E78.5 Hyperlipidemia, unspecified R60.0 Localized edema Assessments Date Code Description Provider 11/19/2020 I10 Essential (primary) hypertension ROBSON Simental 11/19/2020 E78.5 Hyperlipidemia, unspecified ROBSON Chen 11/19/2020 R60.0 Localized edema ROBSON Robertson 10/29/2020 Z03.818 Encounter for observ ation for suspected exposure to other biological agents ruled out ROBSON Simental 07/21/2020 I10 Essential (primary) hypertension ROBSON Simental 07/21/2020 E78.5 Hyperlipidemia, unspecified ROBSON Chen 07/21/2020 E03.9 Hypothyroidism, unspecified ROBSON Chen Plan of Treatment Future Appointment(s):* 02/17/2021 10:30 am - ROBSON Simental at [facility]
--- OUTSIDE RECORDS SUMMARY | 2020-12-31 09:45 | CCD | Continuity of Care Document ---
Author Author Tiffanie BAER A Organization Unknown Address [address] [place] [address] [address] [place] [address] Phone [phone] Care Team Providers Care Agricultural Produce Commission Agent Name Role Phone Angie Wade M.D. AUTM Unavailable Beltran Baer AUTM [facility] Heme/Oncology - Hematology & Oncology AUTM [phone] Jaylen Mora MD AUTM [phone] [facility] Cardiology - Cardiovascular Disease AUTM [phone] Beltran Baer PCP [phone] Social History Type Date Description Comments Sex Unknown Assessments Date Code Description Provider 10/29/2020 Z03.818 Encounter for observ ation for suspected exposure to other biological agents ruled out ROBSON Simental 07/21/2020 I10 Essential (primary) hypertension ROBSON Simental 07/21/2020 E78.5 Hyperlipidemia, unspecified ROBSON Chen 07/21/2020 E03.9 Hypothyroidism, unspecified ROBSON Chen 05/23/2020 I10 Essential (primary) hypertension ROBSON Simental 05/23/2020 E78.5 Hyperlipidemia, unspecified ROBSON Chen 05/23/2020 E03.9 Hypothyroidism, unspecified ROBSON Chen Referrals Refer to Reason for Referral Status Appt Date [facility] Heme/Oncology PATIENT WITH BRUISING, H/O ITP. PLEASE EVAL AN D TREAT. Sent [address] [place] [address] [phone] Jaylen Mora MD PATIENT OF DR. CARRILLO THAT IS REQUESTING FOLLOW UP ON HER KNOWN ANEURYSM. Sent [facility] [address] [facility], [address] [facility] [id number] [phone] [facility] Cardiology PATIENT WITH AFIB AND VALVE DISORDERS, HAS NOT HAD CARDIAC FOLLOW UP IN SOMETIME. PATIENT REQUESTING CARDIAC FOLLOW UP. Sent [address] [place] [address] [phone]
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
[2020-12-31 11:18] LABS: BASO % 0.5 % (0.0-1.0); EOS # 0.2 10^3/uL (0.0-0.5); HEMATOCRIT 33.2 % (36.0-47.0); HEMOGLOBIN 10.1 g/dl (12.0-15.5); LYMPH # 1.3 10^3/uL (1.5-5.0); LYMPH % 17.1 % (24.0-44.0); MEAN CORPUSCULAR HEMOGLOBIN 29.5 pg (27.0-33.0); MEAN CORPUSCULAR HGB CONC 30.4 g/dl (32.0-36.5); MEAN CORPUSCULAR VOLUME 97.1 fl (80.0-96.0); MONO # 0.6 10^3/uL (0.0-0.8); MONO % 7.7 % (2.0-8.0); NEUTROPHILS # 5.4 10^3/uL (1.5-8.5); NEUTROPHILS % 72.2 % (36.0-66.0); PLATELET COUNT, AUTOMATED 130 10^3/uL (150-450); RED BLOOD COUNT 3.42 10^6/uL (4.00-5.40); WHITE BLOOD COUNT 7.4 10^3/uL (4.0-10.0)
[2020-12-31 11:44] LABS: ALBUMIN 3.5 GM/DL (3.2-5.2); ALT/SGPT 14 U/L (12-78); BILIRUBIN,DIRECT 0.4 MG/DL (0.0-0.2); BILIRUBIN,TOTAL 1.2 MG/DL (0.2-1.0); BLOOD UREA NITROGEN 16 MG/DL (7-18); CALCIUM LEVEL 8.9 MG/DL (8.8-10.2); CARBON DIOXIDE LEVEL 31 MEQ/L (21-32); CHLORIDE LEVEL 106 MEQ/L (98-107); CREATININE FOR GFR 0.71 MG/DL (0.55-1.30); GLOMERULAR FILTRATION RATE > 60.0 (>32); GLUCOSE, FASTING 99 MG/DL (70-100); POTASSIUM SERUM 4.2 MEQ/L (3.5-5.1); SODIUM LEVEL 144 MEQ/L (136-145); TOTAL PROTEIN 6.1 GM/DL (6.4-8.2)
[2020-12-31 11:44] LABS: CK-MB VALUE MASS < 1.0 NG/ML (<3.6); CPK CREATINE PHOSPHOKINASE 24 U/L (26-192); MB/CK RELATIVE INDEX 4.17 (< OR =4); TROPONIN I < 0.02 NG/ML (< 0.10)
--- NOTE | 2020-12-31 11:44 | REP ---
INDICATION: SOB. COMPARISON: Comparison chest x-ray 29 November 2019.. TECHNIQUE: Portable semi-erect AP chest x-ray. FINDINGS: Patient is status post thoracic aortic stent graft and median sternotomy. Aortic valve replacement. There is diffuse osteopenia. Moderate cardiomegaly is observed unchanged. Right hemidiaphragm is slightly elevated and right pleural angle is slightly blunted. Pulmonary vasculature is cephalized. No acute infiltrate is seen. IMPRESSION: Cardiomegaly. Status post aortic valve replacement, median sternotomy, and distal thoracic aortic stent graft placement. Vascular congestion and blunting of the right lateral pleural angle. <Electronically signed by Brayan Arreaga > 12/31/20 [id number]
[2020-12-31 12:45] LABS: NT-PRO BNP 7038 PG/ML (<450)
[2020-12-31] MEDS ORDERED: FUROSEMIDE 40MG/4ML VIAL (J1940) IV ONE (13:00)
[2020-12-31] MEDS ORDERED: MAALOX 30 ML SUSP *UDC PO PRN (14:00)
[2020-12-31] MEDS ORDERED: MOM 30ML SUSPENSION UDC PO PRN (14:00)
[2020-12-31] MEDS ORDERED: CO Q10CA PO (14:01)
[2020-12-31] MEDS ORDERED: GABA-282 PO (14:01)
[2020-12-31] MEDS ORDERED: ASPI1TAB8 PO (14:01)
[2020-12-31] MEDS ORDERED: VITATAB73 PO (14:01)
[2020-12-31] MEDS ORDERED: LEVO100T5 PO (14:01)
[2020-12-31] MEDS ORDERED: RA T500C2 PO (14:01)
[2020-12-31] MEDS ORDERED: ATEN50TA2 PO (14:01)
[2020-12-31] MEDS ORDERED: GING500C2 PO (14:01)
[2020-12-31] MEDS ORDERED: HGH PO (14:01)
[2020-12-31] MEDS ORDERED: CINN500C15 PO (14:01)
[2020-12-31] MEDS ORDERED: D31000TA2 PO (14:01)
[2020-12-31] MEDS ORDERED: OMEP1CAP73 PO (14:01)
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
[2020-12-31] MEDS: atenoloL 50 MG TAB PO SCH (15:01)
[2020-12-31 17:28] VITALS: BP 138/88
[2020-12-31] MEDS ORDERED: SLF 3 ML SYR IV PRN (17:30)
[2020-12-31] MEDS: FUROSEMIDE 40MG/4ML VIAL (J1940) IV SCH (17:45)
[2020-12-31 20:00] VITALS: BP 134/64
[2020-12-31] MEDS: OMEPRAZOLE 20 MG CAP PO SCH (21:57)
[2020-12-31] MEDS: GABAPENTIN 300 MG CAP PO SCH (21:57)
[2020-12-31] MEDS: ASPIRIN 81 MG ENTERIC TAB PO SCH (21:57)
[2020-12-31] MEDS: DOCUSATE SODIUM 100MG CAPSULE PO SCH (21:57)
[2020-12-31] MEDS: SLF 3 ML SYR IV SCH (21:58)
[2021-01-01] VITALS: BP 125/56
[2021-01-01 04:00] VITALS: BP 111/56
[2021-01-01] MEDS: LEVOTHYROXINE 100MCG TABLET (0.1MG) PO SCH (05:42)
[2021-01-01] MEDS: SLF 3 ML SYR IV SCH ×3 (05:46→22:13)
[2021-01-01 05:56] LABS: HEMATOCRIT 30.1 % (36.0-47.0); HEMOGLOBIN 9.3 g/dl (12.0-15.5); MEAN CORPUSCULAR HEMOGLOBIN 29.9 pg (27.0-33.0); MEAN CORPUSCULAR HGB CONC 30.9 g/dl (32.0-36.5); MEAN CORPUSCULAR VOLUME 96.8 fl (80.0-96.0); PLATELET COUNT, AUTOMATED 114 10^3/uL (150-450); RED BLOOD COUNT 3.11 10^6/uL (4.00-5.40); WHITE BLOOD COUNT 6.6 10^3/uL (4.0-10.0)
[2021-01-01 06:25] LABS: BLOOD UREA NITROGEN 19 MG/DL (7-18); CALCIUM LEVEL 8.3 MG/DL (8.8-10.2); CARBON DIOXIDE LEVEL 32 MEQ/L (21-32); CHLORIDE LEVEL 105 MEQ/L (98-107); CREATININE FOR GFR 0.69 MG/DL (0.55-1.30); GLOMERULAR FILTRATION RATE > 60.0 (>32); GLUCOSE, FASTING 107 MG/DL (70-100); POTASSIUM SERUM 3.2 MEQ/L (3.5-5.1); SODIUM LEVEL 144 MEQ/L (136-145)
[2021-01-01 07:35] VITALS: BP 124/56
[2021-01-01] MEDS ORDERED: POTASSIUM CHLORIDE 10 MEQ SR TABLET PO ONE (08:10)
[2021-01-01] MEDS: ENOXAPARIN 40MG/0.4ML SYRINGE (J1650 PER 10MG) SC SCH (08:55)
[2021-01-01] MEDS: FUROSEMIDE 40MG/4ML VIAL (J1940) IV SCH ×2 (08:55→16:21)
[2021-01-01] MEDS: DOCUSATE SODIUM 100MG CAPSULE PO SCH ×2 (08:56→19:42)
[2021-01-01] MEDS: GABAPENTIN 300 MG CAP PO SCH ×2 (08:56→19:42)
[2021-01-01] MEDS: OMEPRAZOLE 20 MG CAP PO SCH ×2 (08:56→19:41)
[2021-01-01] MEDS: atenoloL 50 MG TAB PO SCH (08:58)
[2021-01-01] MEDS: atenoloL 25 MG TAB PO SCH (09:00)
--- NOTE | 2021-01-01 09:27 | ECGEPIP ---
[facility] - ED Test Date: 2020-12-31 Pat Name: SHERIDAN JORDAN Department: Room: - Gender: Female Supervisor Advice: RS : [id number] Requested By: Washington Lynch Order Number: [id number] Reading MD: Catalina Vergara Measurements Intervals [place] Rate: 68 P: FL: QRS: 7 QRSD: 102 T: 203 QT: 422 QTc: 448 Interpretive Statements Atrial fibrillation NSTTW abnormalities Septal infarct , age undetermined decreased rate 01/23/19 Electronically Signed on 01-01-2021 9:27:00 EST by Catalina Vergara
[2021-01-01 10:58] VITALS: BP 103/70
--- NOTE | 2021-01-01 11:59 | IPNPDOC ---
Text Note Date of Service The patient was seen on 01/01/21. NOTE Subjective: Patient was seen and examined this morning at bedside. Patient feels better her shortness of breath has improved although she still requiring supplemental oxygen. States her leg swelling has also improved. She has no chest pain and no other complaints feeling well overall and is hungry. There is no acute overnight events reported to me. Objective: Constitutional: Awake and alert, in no apparent distress ENT: Sclera are clear. Respiratory: Lungs mild crackles at bases bilaterally. No respiratory distress. No use of accessory muscles. Cardiovascular: Irregular heart rate mechanical heart sound at aortic area Gastrointestinal: Abdomen is soft, non distended, non tender, BS present. Musculoskeletal: 2+ pitting edema extending up to her thighs, improved from yesterday Neurologic: No focal neurological deficit. Mental Status: A&O x3, normal affect Skin: Dry skin Assessment/plan: 89-year-old female presents with shortness of breath found to be in acute on chronic congestive heart failure exacerbation who was admitted to the medical unit for further management monitoring and diuresis. # Acute on chronic congestive heart failure exacerbation: likely 2/2 none compliance. Last echo in 2019 shows preserved ejection fraction. Repeat echo. BNP is elevated to 7000 at time of admission. Repeat BNP in a few days. Diuresis with IV Lasix. Low-salt diet. Monitor ins and outs. Daily fluid restriction 2 L. Elevate head of bed. Evaluation by PT/OT. Downgrade to med/surg. Respiratory panel pending. # Anemia: Patient has a history of melanotic stools a few weeks ago for which she saw her PCP who elected to monitor for now. Patient's melanotic stools appear to have resolved guaiac test in the ED was negative for blood. Monitor CBC while inpatient. May need outpatient workup EGD/colonoscopy. PPI. # Paroxysmal A. fib: Rate controlled on atenolol which can be continued. However I did reduce her dose of atenolol because her heart rate at times become bradycardic, continue to monitor beta carlos may need to be discontinued altogether. Not anticoagulated, possibly due to her age/fall risk vs being paroxysmal. I'll defer this decision to her PCP. # Hypothyroidism: resume Synthroid. # CAD: statin, ASA, BB # Hypertension: Continue home meds. Monitor and titrate # History of thoracic aortic aneurysm # History of chronic idiopathic thrombus cytopenia purpura: Not on any meds follow-up with PCP. # Neuropathy: Continue gabapentin. 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
[2021-01-01 15:40] VITALS: BP 122/68
[2021-01-01] MEDS: ASPIRIN 81 MG ENTERIC TAB PO SCH (19:41)
[2021-01-01] MEDS: ACETAMINOPHEN TAB 650MG DOSE (2X325MG) PO PRN (19:41)
[2021-01-01 22:00] VITALS: BP 142/72
[2021-01-02] MEDS: SLF 3 ML SYR IV SCH ×3 (05:38→21:03)
[2021-01-02] MEDS: LEVOTHYROXINE 100MCG TABLET (0.1MG) PO SCH (05:38)
[2021-01-02 06:00] VITALS: BP 130/71
[2021-01-02 06:01] LABS: HEMATOCRIT 32.6 % (36.0-47.0); MEAN CORPUSCULAR HEMOGLOBIN 30.1 pg (27.0-33.0); MEAN CORPUSCULAR HGB CONC 30.7 g/dl (32.0-36.5); MEAN CORPUSCULAR VOLUME 98.2 fl (80.0-96.0); PLATELET COUNT, AUTOMATED 116 10^3/uL (150-450); RED BLOOD COUNT 3.32 10^6/uL (4.00-5.40); WHITE BLOOD COUNT 7.2 10^3/uL (4.0-10.0)
[2021-01-02 06:22] LABS: BLOOD UREA NITROGEN 21 MG/DL (7-18); CALCIUM LEVEL 8.2 MG/DL (8.8-10.2); CARBON DIOXIDE LEVEL 38 MEQ/L (21-32); CHLORIDE LEVEL 101 MEQ/L (98-107); CREATININE FOR GFR 0.62 MG/DL (0.55-1.30); GLOMERULAR FILTRATION RATE > 60.0 (>32); GLUCOSE, FASTING 96 MG/DL (70-100); NT-PRO BNP 2980 PG/ML (<450); POTASSIUM SERUM 3.7 MEQ/L (3.5-5.1); SODIUM LEVEL 144 MEQ/L (136-145)
[2021-01-02] MEDS: FUROSEMIDE 40MG/4ML VIAL (J1940) IV SCH ×2 (09:57→16:29)
[2021-01-02] MEDS: GABAPENTIN 300 MG CAP PO SCH ×2 (09:58→21:02)
[2021-01-02] MEDS: OMEPRAZOLE 20 MG CAP PO SCH ×2 (09:58→21:02)
[2021-01-02] MEDS: VITAMIN D 1,000 INTERNATIONAL UNITS TABLET PO SCH (09:58)
[2021-01-02] MEDS: ENOXAPARIN 40MG/0.4ML SYRINGE (J1650 PER 10MG) SC SCH (10:04)
[2021-01-02] MEDS: atenoloL 25 MG TAB PO SCH (10:04)
[2021-01-02] MEDS: DOCUSATE SODIUM 100MG CAPSULE PO SCH ×2 (10:04→21:02)
--- NOTE | 2021-01-02 10:56 | IPNPDOC ---
Text Note Date of Service The patient was seen on 01/02/21. NOTE Subjective: Patient was seen and examined this morning at bedside. Patient continues to improve she says her shortness of breath is better however she still requires supplemental oxygen today again. She has no chest pain and no other complaints feeling well overall and is hungry. There is no acute overnight events reported to me. Objective: Constitutional: Awake and alert, in no apparent distress ENT: Sclera are clear. Respiratory: Lungs mild crackles at bases bilaterally. No respiratory distress. No use of accessory muscles. Cardiovascular: Irregular heart rate mechanical heart sound at aortic area Gastrointestinal: Abdomen is soft, non distended, non tender, BS present. Musculoskeletal: 2+ pitting edema extending up to her knees, improved from yesterday Neurologic: No focal neurological deficit. Mental Status: A&O x3, normal affect Skin: Dry skin Assessment/plan: 89-year-old female presents with shortness of breath found to be in acute on chronic congestive heart failure exacerbation who was admitted to the medical unit for further management monitoring and diuresis. # Acute on chronic congestive heart failure exacerbation: likely 2/2 none compl iance. Last echo in 2019 shows preserved ejection fraction. Follow up Echo results. BNP is elevated to 7000 at time of admission. Which has down trended nicely this morning to 3000. Diuresis with IV Lasix. Low-salt diet. Monitor ins and outs. Daily fluid restriction 2 L. Elevate head of bed. Evaluation by PT/OT. Downgrade to med/surg. Respiratory panel negative. I anticipate another day of diuresis with IV Lasix and possibly transitioning to oral Lasix over the weekend. Attempt to wean off of oxygen. # Anemia: Patient has a history of melanotic stools a few weeks ago for which she saw her PCP who elected to monitor for now. Patient's melanotic stools appear to have resolved guaiac test in the ED was negative for blood. Monitor CBC while inpatient. May need outpatient workup EGD/colonoscopy. PPI. # Paroxysmal A. fib: Rate controlled on atenolol which can be continued. However I did reduce her dose of atenolol because her heart rate at times become bradycardic, continue to monitor beta carlos may need to be discontinued altogether. Not anticoagulated, possibly due to her age/fall risk vs being paroxysmal. I'll defer this decision to her PCP. # Hypothyroidism: resume Synthroid. # CAD: statin, ASA, BB # Hypertension: Continue home meds. Monitor and titrate # History of thoracic aortic aneurysm # History of chronic idiopathic thrombus cytopenia purpura: Not on any meds follow-up with PCP. # Neuropathy: Continue gabapentin. 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
--- NOTE | 2021-01-02 12:10 | ECHO ---
DATE OF PROCEDURE: 01/01/2021 Age: 89 Gender: Female Height: 155 cm Weight: 70 kg REFERRING PHYSICIAN: Enrrique Gracia MD INDICATION: Congestive heart failure. MEASUREMENTS: IVS 1.4 cm LV 4.8 cm LVPW 1.4 cm LA 4.5 cm Aorta 3.0 cm IVC 3.1 cm FINDINGS: Study is of somewhat limited technical quality. The patient is in atrial fibrillation with controlled rate. Left ventricle has normal size and overall likely normal contractility, estimated EF around 55% to 60%. I do not appreciate any distinct segmental wall motion abnormalities. The right ventricle appears dilated and hypokinetic. There is severe biatrial enlargement. The aortic valve is heavily calcified and there is significant restriction of cusp mobility. Based on 2D imaging, I estimate approximately moderate aortic stenosis. There are degenerative abnormalities of the mitral valve with thickening of the mitral leaflets and mitral annular calcifications, but mobility is preserved. Tricuspid and pulmonic valves appear normal. No pericardial effusion is noted. Inferior vena cava is dilated and there is no appreciable collapse with inspiration indicative of very high central venous pressure. Aortic root is normal. Aortic arch and abdominal aorta were not visualized. Doppler interrogation of the aortic valve reveals trace insufficiency and likely moderate stenosis. Mean gradient is 23 mmHg and peak gradient 43 mmHg. Calculated aortic valve area was only 0.4 cm2, but I believe this is inaccurate. There is eccentric mitral insufficiency that is approximately moderate. There is moderate tricuspid insufficiency. Calculated pulmonary artery pressure is at least around 60 mmHg corresponding to moderately severe pulmonary hypertension. Mild pulmonic insufficiency is also noted. Evaluation of diastolic function is inconclusive due to underlying atrial fibrillation. CONCLUSIONS: 1. Study is of acceptable technical quality, underlying atrial fibrillation with controlled rate. 2. Normal LV size with mild LVH, preserved LV systolic function. 3. Heavily sclerotic aortic valve with approximately moderate stenosis (mean gradient 23 mmHg) and trace insufficiency. 4. Moderate mitral and tricuspid insufficiency. 5. Very high central venous pressure. 6. Moderate to severe pulmonary hypertension (estimated pulmonary artery pressure 60 to 65 mmHg). 7. Severe biatrial enlargement. MTDD
[2021-01-02 14:00] VITALS: BP 120/72
[2021-01-02] MEDS: ASPIRIN 81 MG ENTERIC TAB PO SCH (21:02)
[2021-01-02 22:00] VITALS: BP 140/59
[2021-01-03] MEDS: SLF 3 ML SYR IV SCH ×3 (05:59→20:14)
[2021-01-03] MEDS: LEVOTHYROXINE 100MCG TABLET (0.1MG) PO SCH (05:59)
[2021-01-03 06:00] VITALS: BP 107/55
[2021-01-03 06:30] LABS: HEMATOCRIT 32.7 % (36.0-47.0); HEMOGLOBIN 9.8 g/dl (12.0-15.5); MEAN CORPUSCULAR HEMOGLOBIN 29.6 pg (27.0-33.0); MEAN CORPUSCULAR VOLUME 98.8 fl (80.0-96.0); PLATELET COUNT, AUTOMATED 130 10^3/uL (150-450); RED BLOOD COUNT 3.31 10^6/uL (4.00-5.40); WHITE BLOOD COUNT 8.2 10^3/uL (4.0-10.0)
[2021-01-03 06:51] LABS: BLOOD UREA NITROGEN 22 MG/DL (7-18); CALCIUM LEVEL 8.2 MG/DL (8.8-10.2); CARBON DIOXIDE LEVEL 41 MEQ/L (21-32); CHLORIDE LEVEL 97 MEQ/L (98-107); CREATININE FOR GFR 0.57 MG/DL (0.55-1.30); GLOMERULAR FILTRATION RATE > 60.0 (>32); GLUCOSE, FASTING 98 MG/DL (70-100); POTASSIUM SERUM 3.5 MEQ/L (3.5-5.1); SODIUM LEVEL 143 MEQ/L (136-145)
[2021-01-03] MEDS: OMEPRAZOLE 20 MG CAP PO SCH ×2 (09:08→20:12)
[2021-01-03] MEDS: FUROSEMIDE 40MG/4ML VIAL (J1940) IV SCH (09:08)
[2021-01-03] MEDS: VITAMIN D 1,000 INTERNATIONAL UNITS TABLET PO SCH (09:08)
[2021-01-03] MEDS: GABAPENTIN 300 MG CAP PO SCH ×2 (09:08→20:12)
[2021-01-03] MEDS: DOCUSATE SODIUM 100MG CAPSULE PO SCH ×2 (09:08→20:14)
[2021-01-03] MEDS: ENOXAPARIN 40MG/0.4ML SYRINGE (J1650 PER 10MG) SC SCH (09:14)
[2021-01-03] MEDS: atenoloL 25 MG TAB PO SCH (09:14)
--- NOTE | 2021-01-03 09:36 | IPNPDOC ---
Text Note Date of Service The patient was seen on 01/03/21. NOTE Subjective: Patient was sitting upright on the edge of the bed this morning. She is in very good spirits and states that she is feeling much better. She still is on 1L O2, will continue to attempt to wean this off since she is not on O2 at home. Leg edema is only trace today, so will switch from IV to PO and see how she does. Objective: Constitutional: Awake and alert, in no apparent distress ENT: Sclera are clear. Respiratory: Lungs still have mild crackles at bases bilaterally, with minimal expiratory wheeze at the apices. No respiratory distress. No use of accessory muscles. Cardiovascular: Irregular heart rate mechanical heart sound at aortic area Gastrointestinal: Abdomen is soft, non distended, non tender, BS present. Musculoskeletal: 2+ pitting edema extending up to her knees, improved from yesterday Neurologic: No focal neurological deficit. Mental Status: A&O x3, normal affect Skin: Dry skin Assessment/plan: 89-year-old female presents with shortness of breath found to be in acute on chronic congestive heart failure exacerbation who was admitted to the medical unit for further management monitoring and diuresis. # Acute on chronic congestive heart failure exacerbation: likely 2/2 none compliance. Last echo in 2019 shows preserved ejection fraction. Follow up Echo results. BNP is elevated to 7000 at time of admission. Which has down trended nicely. Since LE edema is almost resolved will switch to PO Lasix, but continue with higher dose & diuresis due to o2 requirement & lung sounds (crackles & mild wheeze). Continue Low-salt diet & will add 2000mL fluid restriction. Monitor ins and outs. Elevate head of bed. Evaluation by PT/OT. Respiratory panel negative. Continue attempting to wean off of oxygen. # Anemia: Patient has a history of melanotic stools a few weeks ago for which she saw her PCP who elected to monitor for now. Patient's melanotic stools appear to have resolved guaiac test in the ED was negative for blood. Monitor CBC while inpatient. May need outpatient workup EGD/colonoscopy. PPI. # Paroxysmal A. fib: Rate controlled on atenolol which can be continued on reduced dose. Continue to monitor, beta carlos may need to be further reduced if she has more bradycardic episodes. Not anticoagulated, possibly due to her age/fall risk vs being paroxysmal. Will defer this decision to her PCP. # Hypothyroidism: continue Synthroid. # CAD: statin, ASA, BB # Hypertension: Continue home meds. Monitor and titrate # History of thoracic aortic aneurysm # History of chronic idiopathic thrombus cytopenia purpura: Not on any meds follow-up with PCP. # Neuropathy: Continue gabapentin. 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
[2021-01-03] MEDS: FUROSEMIDE 40 MG TAB PO SCH ×2 (09:56→16:57)
[2021-01-03 14:00] VITALS: BP 114/51
[2021-01-03] MEDS: ASPIRIN 81 MG ENTERIC TAB PO SCH (20:12)
[2021-01-03 22:00] VITALS: BP 122/62
[2021-01-04 05:56] LABS: HEMATOCRIT 30.3 % (36.0-47.0); MEAN CORPUSCULAR HEMOGLOBIN 29.3 pg (27.0-33.0); MEAN CORPUSCULAR HGB CONC 29.7 g/dl (32.0-36.5); MEAN CORPUSCULAR VOLUME 98.7 fl (80.0-96.0); PLATELET COUNT, AUTOMATED 137 10^3/uL (150-450); RED BLOOD COUNT 3.07 10^6/uL (4.00-5.40); WHITE BLOOD COUNT 6.9 10^3/uL (4.0-10.0)
[2021-01-04 06:00] VITALS: BP 117/61
[2021-01-04 06:19] LABS: BLOOD UREA NITROGEN 21 MG/DL (7-18); CALCIUM LEVEL 8.5 MG/DL (8.8-10.2); CARBON DIOXIDE LEVEL 40 MEQ/L (21-32); CHLORIDE LEVEL 100 MEQ/L (98-107); CREATININE FOR GFR 0.66 MG/DL (0.55-1.30); GLOMERULAR FILTRATION RATE > 60.0 (>32); GLUCOSE, FASTING 91 MG/DL (70-100); POTASSIUM SERUM 3.4 MEQ/L (3.5-5.1); SODIUM LEVEL 142 MEQ/L (136-145)
[2021-01-04] MEDS: LEVOTHYROXINE 100MCG TABLET (0.1MG) PO SCH (06:32)
[2021-01-04] MEDS: SLF 3 ML SYR IV SCH ×3 (06:33→21:24)
[2021-01-04] MEDS: ENOXAPARIN 40MG/0.4ML SYRINGE (J1650 PER 10MG) SC SCH (08:22)
[2021-01-04] MEDS: DOCUSATE SODIUM 100MG CAPSULE PO SCH ×2 (08:22→21:22)
[2021-01-04] MEDS: OMEPRAZOLE 20 MG CAP PO SCH ×2 (08:23→21:22)
[2021-01-04] MEDS: VITAMIN D 1,000 INTERNATIONAL UNITS TABLET PO SCH (08:23)
[2021-01-04] MEDS: FUROSEMIDE 40 MG TAB PO SCH ×2 (08:23→16:04)
[2021-01-04] MEDS: GABAPENTIN 300 MG CAP PO SCH ×2 (08:23→21:22)
[2021-01-04] MEDS: atenoloL 25 MG TAB PO SCH (08:24)
[2021-01-04] MEDS: FLUTICASONE PROP 0.05% NASAL SPRAY 16 GM (FLONASE) NARES SCH ×2 (09:00→21:21)
[2021-01-04] MEDS ORDERED: CETI10CA2 PO (13:33)
[2021-01-04] MEDS ORDERED: FLON1SPR NARES (13:33)
[2021-01-04 14:00] VITALS: BP 111/65
[2021-01-04] MEDS: CETIRIZINE (ZyrTEC) 10 MG TAB PO SCH (16:04)
--- NOTE | 2021-01-04 16:51 | IPNPDOC ---
Text Note Date of Service The patient was seen on 01/04/21. NOTE Subjective: She is once again a very good spirits today. She does not have any psychiatric disease diagnosed on her in the chart, but she continues to have very strange thoughts, although they're not necessarily defined as bizarre. For example, she has a belief that [place], she openly admits that this might be a scam, but nevertheless continues to believe that it is actually there waiting for her when COVID ends. She also expresses a variety of similarly difficult to believe views to the nurses which are not necessarily untenable, but are certainly unlikely. It is my suspicion that she may be beginning to experience some dementia. Nevertheless this may be pursued by her PCP as an outpatient. Medically speaking, she continues to require 1-2 L of oxygen even at rest, and her O2 sats drop with minimal exertion. She is not on oxygen at home. She continues to diuresis fairly well with PO Lasix and we will continue with the same for now. Objective: Constitutional: Awake and alert, in no apparent distress ENT: Sclera are clear. Respiratory: Minimal crackles noted at the left lung base, right side appears to be clear today. No respiratory distress. No use of accessory muscles. Cardiovascular: Irregular heart rate mechanical heart sound at aortic area Gastrointestinal: Abdomen is soft, non distended, non tender, BS present. Musculoskeletal: 2+ pitting edema extending up to her knees, improved from yesterday Neurologic: No focal neurological deficit. Mental Status: normal affect Skin: Dry skin Assessment/plan: 89-year-old female presents with shortness of breath found to be in acute on chronic congestive heart failure exacerbation who was admitted to the medical unit for further management monitoring and diuresis. # Acute on chronic congestive heart failure exacerbation: likely 2/2 none compliance. Last echo in 2019 shows preserved ejection fraction. Follow up Echo results. BNP is elevated to 7000 at time of admission. Which has down trended nicely. Continue Low-salt diet & will add 2000mL fluid restriction. Monitor ins and outs. Elevate head of bed. Evaluation by PT/OT. Respiratory panel negative. Continue attempting to wean off of oxygen. Continue with oral Lasix and, she no longer has wheezing today, and her crackles or only in the left lung base which is an improvement from yesterday. She continues to improve, albeit slowly. # Anemia: Patient has a history of melanotic stools a few weeks ago for which she saw her PCP who elected to monitor for now. Patient's melanotic stools appear to have resolved guaiac test in the ED was negative for blood. Monitor CBC while inpatient. May need outpatient workup EGD/colonoscopy. PPI. # Paroxysmal A. fib: Rate controlled on atenolol which can be continued on reduced dose. Continue to monitor, beta carlos may need to be further reduced if she has more bradycardic episodes. Not anticoagulated, possibly due to her age/fall risk vs being paroxysmal. Will defer this decision to her PCP. # Hypothyroidism: continue Synthroid. # CAD: statin, ASA, BB # Hypertension: Continue home meds. Monitor and titrate # History of thoracic aortic aneurysm # History of chronic idiopathic thrombus cytopenia purpura: Not on any meds follow-up with PCP. # Neuropathy: Continue gabapentin. 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
[2021-01-04] MEDS: ASPIRIN 81 MG ENTERIC TAB PO SCH (21:22)
[2021-01-04 22:00] VITALS: BP 119/57
[2021-01-05] MEDS: LEVOTHYROXINE 100MCG TABLET (0.1MG) PO SCH (05:49)
[2021-01-05] MEDS: SLF 3 ML SYR IV SCH ×3 (05:50→22:00)
[2021-01-05 06:00] VITALS: BP 122/78
[2021-01-05 06:05] LABS: HEMOGLOBIN 8.8 g/dl (12.0-15.5); MEAN CORPUSCULAR HGB CONC 29.3 g/dl (32.0-36.5); PLATELET COUNT, AUTOMATED 120 10^3/uL (150-450); RED BLOOD COUNT 3.03 10^6/uL (4.00-5.40); WHITE BLOOD COUNT 6.7 10^3/uL (4.0-10.0)
[2021-01-05 06:35] LABS: BLOOD UREA NITROGEN 22 MG/DL (7-18); CALCIUM LEVEL 8.8 MG/DL (8.8-10.2); CARBON DIOXIDE LEVEL 40 MEQ/L (21-32); CHLORIDE LEVEL 100 MEQ/L (98-107); CREATININE FOR GFR 0.74 MG/DL (0.55-1.30); GLOMERULAR FILTRATION RATE > 60.0 (>32); GLUCOSE, FASTING 87 MG/DL (70-100); POTASSIUM SERUM 3.3 MEQ/L (3.5-5.1); SODIUM LEVEL 142 MEQ/L (136-145)
[2021-01-05] MEDS: FUROSEMIDE 40 MG TAB PO SCH (09:06)
[2021-01-05] MEDS: CETIRIZINE (ZyrTEC) 10 MG TAB PO SCH (09:06)
[2021-01-05] MEDS: DOCUSATE SODIUM 100MG CAPSULE PO SCH ×2 (09:06→20:37)
[2021-01-05] MEDS: VITAMIN D 1,000 INTERNATIONAL UNITS TABLET PO SCH (09:06)
[2021-01-05] MEDS: OMEPRAZOLE 20 MG CAP PO SCH ×2 (09:06→20:36)
[2021-01-05] MEDS: GABAPENTIN 300 MG CAP PO SCH ×2 (09:06→20:37)
[2021-01-05] MEDS: ENOXAPARIN 40MG/0.4ML SYRINGE (J1650 PER 10MG) SC SCH (09:07)
[2021-01-05] MEDS: FLUTICASONE PROP 0.05% NASAL SPRAY 16 GM (FLONASE) NARES SCH ×2 (09:07→20:39)
[2021-01-05] MEDS: atenoloL 25 MG TAB PO SCH (09:13)
[2021-01-05 11:00] VITALS: BP 114/57
[2021-01-05 11:03] VITALS: BP 126/60
[2021-01-05 11:06] VITALS: BP 120/59
[2021-01-05] MEDS: ACETAMINOPHEN TAB 650MG DOSE (2X325MG) PO PRN ×2 (12:45→17:36)
[2021-01-05 14:00] VITALS: BP 114/62
[2021-01-05] MEDS: FUROSEMIDE 20 MG TAB PO SCH (17:17)
--- NOTE | 2021-01-05 20:13 | IPNPDOC ---
Text Note Date of Service The patient was seen on 01/05/21. NOTE Subjective: She is once again a good spirits today. She is not have any complaints at this time. She reports that she is not on oxygen at home, therefore will be our goal to get her off oxygen prior to discharge. Otherwise, the remainder of her review of systems is negative. Objective: Constitutional: Awake and alert, in no apparent distress ENT: Sclera are clear. Respiratory: crackles noted at the left lung base, right side appears to be clear today. No respiratory distress. No use of accessory muscles. Cardiovascular: Irregular heart rate mechanical heart sound at aortic area Gastrointestinal: Abdomen is soft, non distended, non tender, BS present. Musculoskeletal: 2+ pitting edema extending up to her knees, improved from yesterday Neurologic: No focal neurological deficit. Mental Status: normal affect Skin: Dry skin Assessment/plan: 89-year-old female presents with shortness of breath found to be in acute on chronic congestive heart failure exacerbation who was admitted to the medical unit for further management monitoring and diuresis. Openly admits noncompliance with diuretics at home. # Acute on chronic congestive heart failure exacerbation: likely 2/2 noncompliance. Last echo in 2019 shows preserved ejection fraction. Follow up Echo results. BNP is elevated to 7000 at time of admission. Which has down trended nicely. Continue Low-salt diet & will add 2000mL fluid restriction. Monitor ins and outs. Elevate head of bed. Evaluation by PT/OT. Respiratory panel negative. Continue attempting to wean off of oxygen. Wheezing and crackles have essentially resolved, however crackles at the left base seem to be a little bit worse today. We will increase her dose of Lasix, if not off oxygen by tomorrow, perhaps switch back to IV. # Anemia: Patient has a history of melanotic stools a few weeks ago for which she saw her PCP who elected to monitor for now. Patient's melanotic stools appear to have resolved guaiac test in the ED was negative for blood. Monitor CBC while inpatient. May need outpatient workup EGD/colonoscopy. PPI. # Paroxysmal A. fib: Rate controlled on atenolol which can be continued on reduced dose. Continue to monitor, beta carlos may need to be further reduced if she has more bradycardic episodes. Not anticoagulated, possibly due to her age/fall risk vs being paroxysmal. Will defer this decision to her PCP. # Hypothyroidism: continue Synthroid. # CAD: statin, ASA, BB # Hypertension: Continue home meds. Monitor and titrate # History of thoracic aortic aneurysm # History of chronic idiopathic thrombus cytopenia purpura: Not on any meds follow-up with PCP. # Neuropathy: Continue gabapentin. 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
[2021-01-05] MEDS: ASPIRIN 81 MG ENTERIC TAB PO SCH (20:35)
[2021-01-05] MEDS ORDERED: POTASSIUM CHLORIDE 10 MEQ SR TABLET PO ONE (21:00)
[2021-01-05 22:00] VITALS: BP 124/76
[2021-01-06] MEDS: LEVOTHYROXINE 100MCG TABLET (0.1MG) PO SCH (05:38)
[2021-01-06] MEDS: SLF 3 ML SYR IV SCH ×2 (05:39→14:00)
[2021-01-06 06:00] VITALS: BP 118/68
[2021-01-06 06:04] LABS: HEMATOCRIT 30.1 % (36.0-47.0); HEMOGLOBIN 9.2 g/dl (12.0-15.5); MEAN CORPUSCULAR HEMOGLOBIN 30.2 pg (27.0-33.0); MEAN CORPUSCULAR HGB CONC 30.6 g/dl (32.0-36.5); MEAN CORPUSCULAR VOLUME 98.7 fl (80.0-96.0); PLATELET COUNT, AUTOMATED 124 10^3/uL (150-450); RED BLOOD COUNT 3.05 10^6/uL (4.00-5.40); WHITE BLOOD COUNT 6.1 10^3/uL (4.0-10.0)
[2021-01-06 06:29] LABS: BLOOD UREA NITROGEN 24 MG/DL (7-18); CALCIUM LEVEL 8.7 MG/DL (8.8-10.2); CARBON DIOXIDE LEVEL 39 MEQ/L (21-32); CHLORIDE LEVEL 103 MEQ/L (98-107); CREATININE FOR GFR 0.72 MG/DL (0.55-1.30); GLOMERULAR FILTRATION RATE > 60.0 (>32); GLUCOSE, FASTING 86 MG/DL (70-100); POTASSIUM SERUM 4.3 MEQ/L (3.5-5.1); SODIUM LEVEL 142 MEQ/L (136-145)
[2021-01-06 08:04] VITALS: BP 118/68
[2021-01-06] MEDS: OMEPRAZOLE 20 MG CAP PO SCH (08:04)
[2021-01-06] MEDS: VITAMIN D 1,000 INTERNATIONAL UNITS TABLET PO SCH (08:04)
[2021-01-06] MEDS: GABAPENTIN 300 MG CAP PO SCH (08:04)
[2021-01-06] MEDS: atenoloL 25 MG TAB PO SCH (08:04)
[2021-01-06] MEDS: CETIRIZINE (ZyrTEC) 10 MG TAB PO SCH (08:04)
[2021-01-06] MEDS: ENOXAPARIN 40MG/0.4ML SYRINGE (J1650 PER 10MG) SC SCH (08:05)
[2021-01-06] MEDS: DOCUSATE SODIUM 100MG CAPSULE PO SCH (08:05)
[2021-01-06] MEDS: FLUTICASONE PROP 0.05% NASAL SPRAY 16 GM (FLONASE) NARES SCH (08:05)
[2021-01-06] MEDS: FUROSEMIDE 20 MG TAB PO SCH (08:05)
[2021-01-06] MEDS ORDERED: LASI40TA9 PO (10:48)
--- NOTE | 2021-01-06 11:21 | DSES ---
DISCHARGE SUMMARY DATE OF ADMISSION: 12/31/2020 DATE OF DISCHARGE: 01/06/2021 PRINCIPAL DIAGNOSIS: Acute on chronic congestive heart failure with preserved ejection fraction. SECONDARY DIAGNOSES: 1. Hypoxemia requiring discharge in-home oxygen. 2. Anemia from presumed GI blood loss. 3. Paroxysmal atrial fibrillation. 4. Hypothyroidism. 5. Coronary artery disease. 6. Hypertensive heart disease. 7. History of bioprosthetic aortic heart valve. HISTORY: Patient admitted with shortness of breath. I assumed her care on the day of discharge. Per records, she was admitted with acute exacerbation of congestive heart failure. Had an echocardiogram 2019 which showed preserved ejection fraction. HOSPITAL COURSE: Admitted to a medical bed. Echocardiogram was performed during this admission. Had ejection fraction of 55-60%, sclerotic aortic valve, moderate aortic stenosis, mean gradient 23 mm, peak gradient 43 mm, aortic valve area 0.4 square centimeters (felt to be inaccurate), moderately severe pulmonary hypertension noted. She had a good diuresis early in the hospitalization. It looks like she had about a 3 liter net diuresis. On the day of discharge, she is eager to go home. She still requires oxygen 2 liters nasal cannula with exertion and apparently needs a rolling walker as well. PHYSICAL EXAMINATION: BP 118/68, pulse 70, respiratory rate 18, 98% O2 saturation at rest on 2 liters, desaturation below 88% with exertion. O2 saturations are per nursing notes. On exam, she is resting comfortably. No JVD. Lungs had decreased breath sounds. Heart is regular rate and rhythm with a 2/6 systolic ejection murmur. Abdomen is soft, nontender. No masses. Trace peripheral edema. LABORATORY DATA: White count 6.1, hemoglobin 9.2, platelets 124. Sodium 142, potassium 4.3, BUN 24, creatinine 0.7, glucose 86. COVID panel was negative. DISPOSITION: Patient was discharged home in improved and stable condition. FOLLOW UP: Follow up with her primary care provider in a week. DISCHARGE INSTRUCTIONS: Activity as tolerated, 2 gram sodium diet, 1800 mL per day fluid restriction. MEDICATIONS ON DISCHARGE: 1. Aspirin 81 mg a daily. 2. Atenolol 50 mg daily. 3. Zyrtec 10 mg daily. 4. Vitamin D. 5. Flonase two sprays daily. 6. Gabapentin 300 mg b.i.d. 7. Levothyroxine 100 mcg daily. 8. Omeprazole 20 mg b.i.d. 9. Coenzyme Q10. 10. She takes things like tumeric, pramod, and cinnamon bark and a vitamin B complex and something called HGH drops. 11. Furosemide 40 mg b.i.d. for two weeks, and then her primary care provider can decide on adjusting this dose. 12. She will be going home on 2 liters nasal cannula. She apparently needs a prescription for a rolling walker.
[2021-01-06 14:00] VITALS: BP 111/57
== END 2021-01-06 16:04 | disposition home health service (06) | DRG 293 ==
LOC: M ED 09:35 → M ED INP 13:56 → M PCU 17:11 → M MSPAV 01-01 15:31
PROVIDERS: ADMIT Family Medicine; ATTEND Family Medicine
DX: I11.0 Hypertensive heart disease with heart failure (principal); I50.33 Acute on chronic diastolic (congestive) heart failure; I48.0 Paroxysmal atrial fibrillation; D64.9 Anemia, unspecified; I25.10 Atherosclerotic heart disease of native coronary artery without angina pectoris; E03.9 Hypothyroidism, unspecified; D50.0 Iron deficiency anemia secondary to blood loss (chronic); I27.20 Pulmonary hypertension, unspecified; I35.0 Nonrheumatic aortic (valve) stenosis; Z79.82 Long term (current) use of aspirin; Z79.899 Other long term (current) drug therapy; Z91.14 Patient's other noncompliance with medication regimen; G62.9 Polyneuropathy, unspecified; Z95.2 Presence of prosthetic heart valve; I71.2 Thoracic aortic aneurysm, without rupture

== ENCOUNTER 2021-01-09 18:36 | Emergency (ER) | payer MEDICARE ==
[~2021-01-09] VITALS: Ht 154.9 cm; Wt 66.2 kg
[~2021-01-09 18:36] MED LIST changes: +ASPI1TAB8 PO; +ATEN50TA2 PO; +CETI10CA2 PO; +CINN500C15 PO; +CO Q10CA PO; +D31000TA2 PO; +FLON1SPR NARES; +GING500C2 PO; +HGH PO; +LASI40TA9 PO; +LEVO100T5 PO; +OMEP1CAP73 PO; +RA T500C2 PO; +VITATAB73 PO
--- NOTE | 2021-01-09 20:19 | REP ---
INDICATION: CHEST PAIN COMPARISON: 12/31/2020 TECHNIQUE: Portable AP view of the chest FINDINGS: The mediastinum and cardiac silhouette are stable with evidence for prior sternotomy, aortic valve repair, and ascending aortic stent for aneurysm. The lung merchant demonstrate stable chronic changes without acute consolidation, effusion, or pneumothorax. Skeletal structures are intact. IMPRESSION: Stable chronic findings. <Electronically signed by Shaka Vergara > 01/09/212014
[2021-01-09 21:03] LABS: BASO % 0.5 % (0.0-1.0); EOS # 0.3 10^3/uL (0.0-0.5); EOS % 3.8 % (0.0-3.0); HEMATOCRIT 33.2 % (36.0-47.0); LYMPH # 1.9 10^3/uL (1.5-5.0); LYMPH % 25.7 % (24.0-44.0); MEAN CORPUSCULAR HEMOGLOBIN 29.5 pg (27.0-33.0); MEAN CORPUSCULAR HGB CONC 30.1 g/dl (32.0-36.5); MEAN CORPUSCULAR VOLUME 97.9 fl (80.0-96.0); MONO # 0.8 10^3/uL (0.0-0.8); MONO % 10.1 % (2.0-8.0); NEUTROPHILS # 4.5 10^3/uL (1.5-8.5); NEUTROPHILS % 59.2 % (36.0-66.0); PLATELET COUNT, AUTOMATED 166 10^3/uL (150-450); RED BLOOD COUNT 3.39 10^6/uL (4.00-5.40); WHITE BLOOD COUNT 7.5 10^3/uL (4.0-10.0)
[2021-01-09 21:17] LABS: INR 1.17; PARTIAL THROMBOPLASTIN TIME 28.1 SECONDS (24.2-38.5); PROTHROMBIN TIME 15.2 SECONDS (12.5-14.3)
[2021-01-09 21:29] LABS: BLOOD UREA NITROGEN 33 MG/DL (7-18); CALCIUM LEVEL 8.4 MG/DL (8.8-10.2); CARBON DIOXIDE LEVEL 40 MEQ/L (21-32); CHLORIDE LEVEL 99 MEQ/L (98-107); CK-MB VALUE MASS < 1.0 NG/ML (<3.6); CPK CREATINE PHOSPHOKINASE 21 U/L (26-192); CREATININE FOR GFR 0.99 MG/DL (0.55-1.30); GLOMERULAR FILTRATION RATE 56.4 (>32); GLUCOSE, FASTING 93 MG/DL (70-100); MAGNESIUM LEVEL 2.5 MG/DL (1.8-2.4); MB/CK RELATIVE INDEX 4.76 (< OR =4); NT-PRO BNP 1903 PG/ML (<450); SODIUM LEVEL 143 MEQ/L (136-145); TROPONIN I < 0.02 NG/ML (< 0.10)
--- NOTE | 2021-01-09 23:00 | REPVR ---
PROCEDURE INFORMATION: Exam: CT Head Without Contrast Exam date and time: 01/09/2021 10:06 PM Age: 89 years old Clinical indication: Other: L arm contracture; Additional info: Left arm contracture TECHNIQUE: Imaging protocol: Computed tomography of the head without contrast. Radiation optimization: All CT scans at this facility use at least one of these dose optimization techniques: automated exposure control; mA and/or kV adjustment per patient size (includes targeted exams where dose is matched to clinical indication); or iterative reconstruction. COMPARISON: No relevant prior studies available. FINDINGS: Brain: Decreased attenuation of the supratentorial white matter is likely secondary to chronic microvascular ischemia. No acute intracranial hemorrhage. Cerebral ventricles: Ventricular and subarachnoid spaces are age appropriate. Bones/joints: Unremarkable. No acute fracture. Paranasal sinuses: Visualized sinuses are unremarkable. No fluid levels. Mastoid air cells: Visualized mastoid air cells are well aerated. Vasculature: Intracranial vascular calcification. Soft tissues: Unremarkable. IMPRESSION: No acute intracranial abnormality. Electronically signed by: Perry Weathers On 01/09/2021 23:00:53 PM
[2021-01-09] MEDS ORDERED: CALCIUM CARBONATE 500 MG CHEW U/D PO ONE (23:25)
[2021-01-09] MEDS ORDERED: FURO40TA2 (23:25)
[2021-01-09] MEDS ORDERED: CALC500C16 PO (23:29)
[2021-01-09 23:59] VITALS: BP 113/56
--- NOTE | 2021-01-10 06:17 | ECGEPIP ---
[facility] - ED Test Date: 2021-01-09 Pat Name: SHERDIAN JORDAN Department: Room: - Gender: Female Dry Cleaner: BJ : 1930 Requested By: ADILENE Rosales Order Number: [id number] Reading MD: Lamine Chairez Measurements Intervals Richardson Rate: 62 P: LA: QRS: -25 QRSD: 112 T: 164 QT: 506 QTc: 513 Interpretive Statements Probable atrial fibrillation Low voltage QRS Cannot rule out Anteroseptal infarct , age undetermined Prolonged QT NONSPECIFIC ST T WAVE CHANGES BASELINE WANDERING MAY AFFECT READING cw 12/31/[address] T WAVE CHANGES Electronically Signed on 01-10-2021 6:17:05 EST by Lamine Chairez
== END 2021-01-10 00:06 | disposition home or self-care (01) ==
LOC: M ED 18:36
DX: E83.51 Hypocalcemia (principal); M62.838 Other muscle spasm; I11.0 Hypertensive heart disease with heart failure; I48.91 Unspecified atrial fibrillation; Z79.899 Other long term (current) drug therapy